=== PATIENT | female | born 1985 ===

== ENCOUNTER 2019-07-02 20:13 | Inpatient (IN) | payer OTHER ==
[2019-07-02] MEDS ORDERED: METOCLOPRAMIDE 10 MG/2 ML INJ IV ONE (21:17)
[2019-07-02] MEDS ORDERED: FAMOTIDINE 20 MG/2 ML INJ IV ONE (21:17)
[2019-07-02] MEDS ORDERED: BICITRA ORAL LIQD 30ML PO ONE (21:17)
[2019-07-02] MEDS ORDERED: LACTATED RINGERS 1,000 ML ONE ×2 (21:27→23:14)
[2019-07-02] MEDS: LACTATED RINGERS 1,000 ML IV SCH ×2 (21:30→21:58)
[2019-07-02 21:52] LABS: Basophils % (Auto) 0.5 % (0.0-1.8); Eosinophils % (Auto) 0.4 % (0.0-4.3); Hematocrit 29.5 % (30.3-42.9); Hemoglobin 9.6 gm/dl (10.1-14.3); Lymphocytes # (Auto) 1.5 K/mm3 (1.2-5.4); Lymphocytes % (Auto) 22.9 % (13.4-35.0); Mean Corpuscular HGB Conc 33 % (30-34); Mean Corpuscular Volume 81 fl (79-97); Monocytes # (Auto) 0.4 K/mm3 (0.0-0.8); Monocytes % (Auto) 6.2 % (0.0-7.3); Platelet Count 318 K/mm3 (140-440); Red Blood Count 3.63 M/mm3 (3.65-5.03); Red Cell Distribution Width 15.3 % (13.2-15.2)
[2019-07-02] MEDS ORDERED: OXYTOCIN 20 UNIT/1000ML DRIP 20 UNITS/1,000 ML BAG IV SCH (22:00)
--- NOTE | 2019-07-02 22:15 | History and Physical Report ---
History of Present Illness Date of examination: 07/02/19 History of present illness: PT is a 34 yo at 38.3 weeks in early labor and h/o 2 prior C-sections. Pt is having painful contractions around q 2 min and cervix (per RN) is 1/50/0. No LOF. Uncomplicated preg. except for anemia. Past History Past Medical History: no pertinent history (except anemia during preg.) Past Surgical History: section (x 2) - Obstetrical History Expected Date of Delivery: 07/13/19 Actual Gestation: 38 Week(s) 3 Day(s) : 3 Hx # Term Pregnancies: 2 Number of Living Children: 2 Medications and Allergies Allergies Allergy/AdvReac Type Severity Reaction Status Date / Time No Known Allergies Allergy Unverified 04/24/19 19:10 Active Meds: Active Medications Oxytocin/Sodium Chloride (Pitocin/Ns 20 Unit/1000ml Drip) 20 units in 1,000 mls @ 0 mls/hr IV TITR ROSCOE Lactated Ringer's (Lactated Ringers) 1,000 mls @ 2,250 mls/hr IV PREOP ROSCOE Stop: 07/03/19 22:27 Last Admin: 07/02/19 21:58 Dose: 2,250 mls/hr Documented by: Review of Systems All systems: negative (except for HPI) - Vital Signs Vital signs: Vital Signs Pulse BP Pulse Ox 94 H 108/73 100 07/02/19 20:30 07/02/19 20:30 07/02/19 20:30 Temp Pulse Resp BP Pulse Ox 99.4 F 89 18 108/73 98 07/02/19 20:44 07/02/19 21:55 07/02/19 20:44 07/02/19 20:44 07/02/19 21:55 - Obstetrical FHR: category 1 Results Result Diagrams: 07/02/19 21:30 Abnormal lab results 07/02/19 Range/Units 21:30 RBC 3.63 L (3.65-5.03) M/mm3 Hgb 9.6 L (10.1-14.3) gm/dl Hct 29.5 L (30.3-42.9) % MCH 27 L (28-32) pg RDW 15.3 H (13.2-15.2) % All other labs normal. Assessment and Plan - Patient Problems (1) Previous delivery, antepartum Current Visit: Yes Status: Acute Plan to address problem: Prior C/S x 2 is at 38.3 weeks and is in early labor. PT consented via phone compliance spec. Patient fully consented for the surgery. Risks, benefits, and alternatives were all discussed with the patient including risk of bleeding, infection, and potential for injury. Patient understands and accepts these risks. Patient agrees to proceed with surgery. All questions were answered. Will proceed with RLTCS.
--- NOTE | 2019-07-02 22:17 | Procedure Note ---
OB Delivery Note - Delivery Date of Delivery: 07/02/19 Surgeon: BOAZ TAMEZ Estimated blood loss: other (800 cc) - Section Preop diagnosis: repeat , other (early labor) Postop diagnosis: same section procedure: section, repeat low transverse Disposition: PACU Complications: none Narrative: Indication:34 yo is at 38 weeks and 3 days with a history of 2 prior C- sections. She presented today in early labor. As result patient taken for repeat low-transverse . Of note, 1 place in the mentioned a tubal ligation but the patient declined wanting it today. In addition, there were no tubal papers in the chart available. Findings: Normal uterus, tubes and ovaries. Clear fluid. No nuchal cord. No significant intra-abdominal scarring noted. Procedure: Patient taken to the operating room and prepped and draped in the usual fashion. Pfannenstiel skin incision was made and carried down to the underlying fascia. Fascia was incised and the incision was extended bilaterally. Rectus fascia dissected off the rectus muscle both superiorly and inferiorly. Peritoneum identified tented up and entered. Peritoneal incision extended superiorly and inferiorly with good visualization of the bladder. Bladder blade was placed. Uterine incision was made and the incision was extended bilaterally. The baby was delivered from in the typical vertex fashion. Baby bulb suctioned at the incision site and again after delivery. Cord was delayed clamped and cut and handed off to waiting team. The placenta was delivered spontaneously. The uterus was exteriorized and cleared of all clots and debris. Uterine incision closed with 0 Vicryl in a running locked fashion followed by a second imbricating layer of 0 Vicryl. Good hemostasis was noted. Her urine was clear. Uterus tubes and ovaries return to the abdominal cavity. Gutters were cleared of all clots and debris and the pelvis was well irrigated. Good hemostasis noted. Interceed placed over the uterine incision and over the lower uterine segment in the midline. Attention was turned to the rectus fascia which was reapproximated with 0 Vicryl in a running fashion. Subcutaneous tissues was irrigated. Skin was closed with 4-0 Vicryl in a subcuticular fashion followed by Dermabond. The procedure was concluded at this point and the patient tolerated the procedure well. All instrument and lap counts were correct. - A at 1 minute: 8 at 5 minutes: 9 Infant Gender: Female
[2019-07-02] MEDS ORDERED: ceFAZolin/STERILE WATER 2 GM/20 ML SYRINGE IV ONE (23:10)
[2019-07-02] MEDS ORDERED: LIDOCAINE 2%/EPINEPHRINE 1:200,000 VIAL (20 ML) INFILTRATI ONE (23:14)
[2019-07-02] MEDS ORDERED: PHENYLEPHRINE 10 MG/1 ML INJ SDV ONE (23:14)
[2019-07-02] MEDS ORDERED: dexAMETHasone 20 MG/5 ML VIAL ONE (23:14)
[2019-07-02] MEDS ORDERED: SODIUM CHLORIDE 0.9% 100 ML ONE (23:14)
[2019-07-02] MEDS ORDERED: KETOROLAC 30 MG/1 ML INJ ONE (23:14)
[2019-07-02] MEDS ORDERED: BUPIVACAINE/PF (0.5%) 5 MG/1 ML 30 ML VIAL INFILTRATI ONE (23:14)
[2019-07-02] MEDS ORDERED: DEXMEDETOMIDINE 200 MCG/2 ML VIAL IV ONE (23:14)
[2019-07-02] MEDS ORDERED: SODIUM BICARB 8.4% 50 MEQ/50 ML VIAL IV ONE (23:14)
[2019-07-02] MEDS ORDERED: ceFAZolin 1 GM VIAL ONE (23:20)
[2019-07-02] MEDS ORDERED: KETOROLAC 30 MG/1 ML INJ IV PRN (23:57)
[2019-07-02] MEDS ORDERED: NALOXONE 0.4 MG/1 ML INJ IV PRN (23:57)
[2019-07-02] MEDS ORDERED: LANOLIN/ZINC/DIMETHICONE (LANSINOH) 7 GM TP PRN (23:57)
[2019-07-02] MEDS ORDERED: WITCH HAZEL/ GLYCERIN PAD TP PRN (23:57)
[2019-07-02] MEDS ORDERED: MAGNESIUM HYDROXIDE (MOM) ORAL LIQD UDC PO PRN (23:59)
[2019-07-02] MEDS ORDERED: ONDANSETRON 4 MG/2 ML INJ IV PRN (23:59)
[2019-07-02] MEDS ORDERED: SENNOSIDES 8.6 MG TAB PO PRN (23:59)
--- NOTE | 2019-07-03 00:18 | Anesthesia Consultation ---
Anesthesia Consult and Med Hx Date of service: 07/03/19 - Airway Anesthetic Teeth Evaluation: Good ROM Head & Neck: Adequate Mental/Hyoid Distance: Adequate Mallampati Class: Class II Intubation Access Assessment: Probably Good - Pulmonary Exam CTA: Yes - Cardiac Exam Cardiac Exam: RRR - Pre-Operative Health Status ASA Pre-Surgery Classification: ASA2 Proposed Anesthetic Plan: Spinal - Pulmonary Hx Asthma: No - Cardiovascular System Hx Hypertension: No - Central Nervous System Hx Seizures: No Hx Psychiatric Problems: No - Endocrine Hx Renal Disease: No Hx Hypothyroidism: No Hx Hyperthyroidism: No - Hematic Hx Anemia: Yes Hx Sickle Cell Disease: No - Other Systems Hx Alcohol Use: No
--- NOTE | 2019-07-03 00:18 | Anesthesia Day of Surgery ---
Anesthesia Day of Surgery - Day of Surgery Patient Examined: Yes Patient H&P Reviewed: Yes Patient is NPO: Yes
--- NOTE | 2019-07-03 00:19 | Post Anesthesia Evaluation ---
- Post Anesthesia Evaluation Patient Participated: Yes Airway Patent: Yes Stable Respiratory Function: Yes Nausea/Vomiting: No Temp > 96.8F: Yes Pain Manageable: Yes Adequeate Hydration: Yes Anesthesia Complications: No Block Receding Appropriately: Yes
[2019-07-03] MEDS: OXYTOCIN 20 UNIT/1000ML DRIP 20 UNITS/1,000 ML BAG IV SCH (01:13)
--- NOTE | 2019-07-03 07:04 | Progress Note ---
Assessment and Plan A: POD #1 Asymptomatic Anemia P: Follow Routine PostOp Orders FeSO4 325mg PO BID Encourage increased ambulation after Holden removal Subjective - Subjective Date of service: 07/03/19 Patient reports: appetite normal, voiding normally (holden in place; adquate urine output), pain well controlled, flatus : doing well, bottle feeding Objective - Vital Signs Latest vital signs: Vital Signs Temp Pulse Resp BP BP Pulse Ox 07/03/19 05:30 18 07/03/19 02:20 98.0 F 76 19 112/76 98 07/03/19 01:05 77 12 103/63 97 07/03/19 00:50 70 15 102/62 97 07/03/19 00:35 69 15 105/63 98 07/03/19 00:20 70 10 L 103/63 97 07/03/19 00:15 65 14 110/65 99 07/03/19 00:10 64 15 117/71 99 07/03/19 00:05 97.7 F 69 16 106/61 98 07/02/19 21:55 89 98 07/02/19 21:50 87 100 07/02/19 21:45 92 H 99 07/02/19 21:40 86 98 07/02/19 21:35 95 H 98 07/02/19 21:25 94 H 95 07/02/19 21:23 96 H 94 07/02/19 21:20 90 95 07/02/19 21:18 89 94 07/02/19 21:15 87 96 07/02/19 21:10 91 H 97 07/02/19 21:05 97 H 97 07/02/19 21:02 85 92 07/02/19 21:00 92 H 99 07/02/19 20:55 91 H 99 07/02/19 20:50 98 H 99 07/02/19 20:45 92 H 97 07/02/19 20:44 99.4 F 100 H 18 108/73 97 07/02/19 20:40 90 97 07/02/19 20:35 92 H 98 07/02/19 20:30 96 H 108/73 100 Intake and Output 07/02/19 07/03/19 07/03/19 22:59 06:59 14:59 Intake Total 1000 1000 Output Total 1750 Balance 1000 -750 Intake: IV 1000 1000 Lactated Ringers 1,000 ml 1000 @ 2250 mls/hr IV PREOP ROSCOE Rx#:[id number] PITOCin/NS 20 UNIT/1000ML 0 DRIP 20 units In 1,000 ml @ 250 mls/hr IV DIRECT [facility] Rx#:[id number] Output: Urine 1750 Indwelling Catheter 1150 Other: Total, Output Amount 550 Weight 55.792 kg Estimated Blood Loss 800 - Exam Breasts: Present: normal Cardiovascular: Present: Regular rate Lungs: Present: Clear to auscultation, Normal air movement Abdomen: Present: normal appearance, soft, normal bowel sounds Uterus: Present: normal, firm, fundal height below umbilicus Extremities: Present: normal Incision: Present: dry, dressed - Labs Labs: Abnormal lab results 07/02/19 Range/Units 21:30 RBC 3.63 L (3.65-5.03) M/mm3 Hgb 9.6 L (10.1-14.3) gm/dl Hct 29.5 L (30.3-42.9) % MCH 27 L (28-32) pg RDW 15.3 H (13.2-15.2) %
[2019-07-03] MEDS: FERROUS SULFATE 325 MG TAB PO SCH ×2 (11:30→23:45)
[2019-07-03] MEDS: oxyCODONE /ACETAMINOPHEN 5-325MG TAB PO PRN ×2 (11:30→17:41)
[2019-07-03 12:58] LABS: Hematocrit 28.8 % (30.3-42.9); Hemoglobin 9.3 gm/dl (10.1-14.3)
[2019-07-03] MEDS: IBUPROFEN 800 MG TAB PO PRN (23:45)
[2019-07-04] MEDS: SIMETHICONE 80 MG CHEW TAB PO PRN ×2 (03:15→09:24)
[2019-07-04] MEDS: FERROUS SULFATE 325 MG TAB PO SCH ×2 (09:23→23:54)
[2019-07-04] MEDS: oxyCODONE /ACETAMINOPHEN 5-325MG TAB PO PRN ×2 (09:24→20:23)
--- NOTE | 2019-07-04 10:58 | Progress Note ---
Assessment and Plan - Patient Problems (1) Status post repeat low transverse section Current Visit: Yes Status: Acute Plan to address problem: Continue routine PP orders Anticipate d/c home tomorrow F/U at office in 2 weeks for incision check (2) Anemia Current Visit: Yes Status: Acute Qualifiers: Anemia type: iron deficiency Plan to address problem: Asymptomatic Continue daily oral iron supplementation as directed Increase iron rich foods into diet Subjective - Subjective Date of service: 07/04/19 Principal diagnosis: S/P repeat LTCS; POD#2; Anemia Interval history: See admission H & P; OB operative note and PP progress notes Patient reports: appetite normal, voiding normally, pain well controlled (with medications), flatus, ambulating normally, no bowel movement : doing well, bottle feeding (and ) Objective - Vital Signs Latest vital signs: Vital Signs Temp Pulse Resp BP Pulse Ox 07/04/19 08:40 98.0 F 80 12 104/67 98 07/04/19 01:24 98.7 F 78 20 90/51 97 07/03/19 20:22 98.8 F 90 16 92/56 98 07/03/19 17:20 98.3 F 87 18 86/49 98 07/03/19 12:05 98.1 F 87 18 96/55 98 Intake and Output 07/03/19 07/04/19 07/04/19 23:59 07:59 15:59 Intake Total 360 120 400 Output Total 900 Balance -540 120 400 Intake: Oral 120 400 Intake, Free Water 360 Output: Urine 900 Void 900 Other: Total, Intake Amount 120 200 Total, Output Amount 900 Voiding Method Toilet # Voids Void 1 - Exam Breasts: Present: normal Cardiovascular: Present: Regular rate Lungs: Present: Normal air movement Abdomen: Present: soft, tenderness Uterus: Present: firm, fundal height below umbilicus (U-2) Extremities: Present: normal Deep Tendon Reflex Grade: Normal +2 Incision: Present: dry, intact (no drainage or bleeding noted, glue intact) - Labs Labs: Abnormal lab results 07/03/19 Range/Units 12:29 Hgb 9.3 L (10.1-14.3) gm/dl Hct 28.8 L (30.3-42.9) %
--- NOTE | 2019-07-04 11:02 | Discharge Summary ---
Providers - Providers Date of Admission: 07/02/19 21:19 Date of discharge: 07/05/19 (0900) Attending physician: BOAZ TAMEZ Primary care physician: BOAZ TAMEZ Hospitalization Reason for admission: section, IUP at term Delivery: Procedure: repeat low transverse Episiotomy: none Laceration: none Incision: dry, intact (healing as expected, no drainage or bleeding noted) Other procedures: none complications: none Condition at discharge: Stable Disposition: MA-01 TO HOME OR SELFCARE - Discharge Diagnoses (1) Status post repeat low transverse section Status: Acute (2) Anemia Status: Acute Qualifiers: Anemia type: iron deficiency Plan - Discharge Medications Prescriptions: Ferrous Sulfate [Feosol 325 MG tab] 325 mg PO BID 30 Days #60 tablet Ibuprofen [Motrin 800 MG tab] 800 mg PO Q6H PRN #30 tablet PRN Reason: Pain, Mild (1-3) oxyCODONE /ACETAMINOPHEN [Percocet 5/325 mg] 1 tab PO Q4H PRN #30 tablet PRN Reason: Pain, Moderate (4-6) - Provider Discharge Summary Activity: routine, no sex for 6 weeks, no heavy lifting 4 weeks, no strenuous exercise Diet: other (Iron rich diet) Instructions: routine Additional instructions: [] Smoking cessation referral if applicable(refer to patient education folder for contact #) [] Refer to [facility] Booklet Call your doctor immediately for: * Fever > 100.5 * Heavy vaginal bleeding ( >1 pad per hour) * Severe persistent headache * Shortness of breath * Reddened, hot, painful area to leg or breast * Drainage or odor from incision. * Keep incision clean and dry at all times and follow doctor's instructions regarding bathing/showering - Follow up plan Follow up: BOAZ TAMEZ MD [Primary Care Provider] - 14 Days
[2019-07-04] MEDS: IBUPROFEN 800 MG TAB PO PRN (17:30)
[2019-07-05] MEDS: oxyCODONE /ACETAMINOPHEN 5-325MG TAB PO PRN (08:13)
[2019-07-05] MEDS: FERROUS SULFATE 325 MG TAB PO SCH (10:13)
[2019-07-05 13:15] VITALS: BP 97/55
== END 2019-07-05 14:30 | disposition home or self-care (01) | DRG 787 ==
LOC: TRG 20:13 → APU 20:23 → TRG 21:19 → OB 07-03 01:55
PROVIDERS: ADMIT Obstetrics & Gynecology; ATTEND Obstetrics & Gynecology
PROC: 10D00Z1 Extraction of Products of Conception, Low, Open Approach (ICD-10-PCS; principal; 2019-07-02)
DX: O34.211 Maternal care for low transverse scar from previous cesarean delivery (principal); D62 Acute posthemorrhagic anemia; O99.02 Anemia complicating childbirth; Z3A.38 38 weeks gestation of pregnancy; Z37.0 Single live birth
CPT/HCPCS: 36415; 85014; 85018; 85025; 86592; 86850; 86900; 86901; G0378; C1765; J0690; J1100; J1885; J2370; J2590; J2765; J3490; J7120

== ENCOUNTER 2019-07-07 19:02 | Emergency (ER) | payer OTHER ==
[2019-07-07] MEDS ORDERED: IBUPROFEN 600 MG TAB PO ONE (22:01)
[2019-07-07] MEDS ORDERED: cephALEXin 500 MG CAP PO ONE (22:01)
--- NOTE | 2019-07-07 23:12 | Emergency Department Report ---
- General Chief Complaint: Wound/Laceration Stated Complaint: BLEEDING INCISION Source: patient Mode of arrival: Ambulatory Limitations: No Limitations - History of Present Illness Initial Comments: Patient is a A0 34 yo female who is 3 days post- through a C- section and who presents to the ED with c/o acute onset painful bleeding dehisced surgical site for the last 4 hours. Patient states that multiple areas have opened up and draining blood and fluid. Patient denies fever , chills, nausea, vomiting, chest pain, abdominal pain or traumatic injury, physical straining and heavy lifting. Patient's history obtained through a shared services manager line -: Sudden, hour(s) (4) Location: abdomen (suprapubic) 1 - Bleeding partially opened dehisced surgical site Place: home Patient Tetanus UTD: Yes Context: accidental Associated Symptoms: pain. denies: loss of feeling/numbness, suspect foreign body present, unable to move injured part, weakness followed by dizziness, nausea/vomiting, fever, other Treatments Prior to Arrival: NSAIDS - Related Data Previous Rx's Medication Instructions Recorded Last Taken Type Ibuprofen [Motrin 800 MG tab] 800 mg PO Q6H PRN #30 tablet 07/03/19 Unknown Rx oxyCODONE /ACETAMINOPHEN [Percocet 1 tab PO Q4H PRN #30 tablet 07/03/19 Unknown Rx 5/325 mg] Ferrous Sulfate [Feosol 325 MG tab] 325 mg PO BID 30 Days #60 tablet 07/04/19 Unknown Rx Ibuprofen [Motrin] 600 mg PO Q8H PRN #24 tablet 07/07/19 Unknown Rx cephALEXin [Keflex] 500 mg PO Q6HR #40 capsule 07/07/19 Unknown Rx Allergies Allergy/AdvReac Type Severity Reaction Status Date / Time No Known Allergies Allergy Unverified 04/24/19 19:10 ED Review of Systems ROS: Stated complaint: BLEEDING INCISION Other details as noted in HPI Constitutional: denies: chills, fever Eyes: denies: eye pain, eye discharge, vision change ENT: denies: ear pain, throat pain Respiratory: denies: cough, shortness of breath, wheezing Cardiovascular: denies: chest pain, palpitations Endocrine: no symptoms reported Gastrointestinal: abdominal pain (Mild suprapubic pain due to a bleeding dehisced surgical site). denies: nausea, vomiting, diarrhea Genitourinary: denies: urgency, dysuria, discharge Musculoskeletal: denies: back pain, joint swelling, arthralgia Skin: other (Open wound on suprapubic area from a dehisced surgivcal site). denies: rash, lesions, change in hair/nails, pruritus Neurological: denies: headache, weakness, paresthesias, confusion Psychiatric: denies: anxiety, depression Hematological/Lymphatic: denies: easy bleeding, easy bruising ED Past Medical Hx - Past Medical History Previous Medical History?: No Hx Hypertension: No Hx Diabetes: No Hx Deep Vein Thrombosis: No Hx Renal Disease: No Hx Sickle Cell Disease: No Hx Seizures: No Hx Asthma: No Hx HIV: No - Surgical History Past Surgical History?: No - Social History Smoking Status: Never Smoker Substance Use Type: None - Medications Home Medications: Home Medications Medication Instructions Recorded Confirmed Last Taken Type Ibuprofen [Motrin 800 MG tab] 800 mg PO Q6H PRN #30 tablet 07/03/19 Unknown Rx oxyCODONE /ACETAMINOPHEN [Percocet 1 tab PO Q4H PRN #30 tablet 07/03/19 Unknown Rx 5/325 mg] Ferrous Sulfate [Feosol 325 MG tab] 325 mg PO BID 30 Days #60 tablet 07/04/19 Unknown Rx Ibuprofen [Motrin] 600 mg PO Q8H PRN #24 tablet 07/07/19 Unknown Rx cephALEXin [Keflex] 500 mg PO Q6HR #40 capsule 07/07/19 Unknown Rx ED Physical Exam - General Limitations: No Limitations General appearance: alert, in no apparent distress - Head Head exam: Present: atraumatic, normocephalic, normal inspection - Eye Eye exam: Present: normal appearance, PERRL, EOMI Pupils: Present: normal accommodation - ENT ENT exam: Present: normal exam, normal orophraynx, mucous membranes moist, TM's normal bilaterally, normal external ear exam - Neck Neck exam: Present: normal inspection, full ROM. Absent: tenderness, me ningismus, lymphadenopathy - Respiratory Respiratory exam: Present: normal lung sounds bilaterally. Absent: respiratory distress, wheezes, rales, stridor, chest wall tenderness, accessory muscle use, decreased breath sounds - Cardiovascular Cardiovascular Exam: Present: regular rate, normal rhythm, normal heart sounds. Absent: systolic murmur, diastolic murmur, rubs, gallop - GI/Abdominal GI/Abdominal exam: Present: soft, tenderness (Mild palpable suprapubic tenderness due to an open dehisced surgical site with serosanguinous discharge), normal bowel sounds. Absent: guarding, rebound, rigid, hyperactive bowel sounds, organomegaly, bruit - Extremities Exam Extremities exam: Present: normal inspection, full ROM, normal capillary refill - Back Exam Back exam: Present: normal inspection, full ROM. Absent: tenderness, CVA tenderness (L), muscle spasm, paraspinal tenderness - Neurological Exam Neurological exam: Present: alert, oriented X3, CN II-XII intact, normal gait, reflexes normal - Psychiatric Psychiatric exam: Present: normal affect, normal mood - Skin Skin exam: Present: warm, dry, intact, normal color, other (Open Dehisced C- section surgical wound on suprapubic area with serosanginous discharge). Absent: rash ED Course Vital Signs 07/07/19 07/07/19 19:09 22:23 Temperature 98.8 F Pulse Rate 77 Respiratory 18 16 Rate Blood Pressure 117/76 O2 Sat by Pulse 100 Oximetry ED Medical Decision Making - Medical Decision Making This is a A0 34 yo female who is 3 days post- through a C- section and who presents to the ED with c/o acute onset painful bleeding dehisced surgical site for the last 4 hours. Patient states that multiple areas have opened up and draining blood and fluid. In the ED, patient is alert and oriented x3 and is not in distress. Patient was treated for pain in the ED and also given initial oral antibiotics. The dehisced surgical wound was cleaned with normal saline and Betadine and Steri-Strips applied to reinforce the wound closure and the wound was then dressed appropriately with 4 x 4 and abdominal pad with Tegaderm. Patient tolerated the procedure well and was discharged home on oral antibiotics and advised to follow-up with her [employer] physician Dr. Boaz Duque in the morning for further evaluation. Patient was advised return to the ED immediately if symptoms get worse. - Differential Diagnosis Dehisced Surgical wound; Cellulitis; Abscess; Critical care attestation.: If time is entered above; I have spent that time in minutes in the direct care of this critically ill patient, excluding procedure time. ED Disposition Clinical Impression: Dehiscence of section wound, Disposition: TO HOME OR SELFCARE Is pt being admited?: No Does the pt Need Aspirin: No Condition: Stable Instructions: Wound Infection (ED), Acute Wound Care (ED), Surgical Site Infections (ED) Additional Instructions: Chitina medicamentos con alimentos, romain muchos lquidos y kait un seguimiento con el Dr. Boaz Duque, el mdico de [place] / [employer]pper en las prximas 24-48 horas para la reevaluacin. Regrese al servicio de urgencias de inmediato si los sntomas empeoran. Prescriptions: cephALEXin [Keflex] 500 mg PO Q6HR #40 capsule Ibuprofen [Motrin] 600 mg PO Q8H PRN #24 tablet PRN Reason: Pain Referrals: BOAZ DUQUE MD [Staff Physician] - 24 Hours Time of Disposition: 23:16 Print Language: UKRAINIAN
[2019-07-08 01:56] VITALS: BP 110/62
== END 2019-07-07 23:32 | disposition home or self-care (01) ==
LOC: ED 19:02
DX: O90.0 Disruption of cesarean delivery wound (principal); Z79.1 Long term (current) use of non-steroidal anti-inflammatories (NSAID); Z79.899 Other long term (current) drug therapy